=== PATIENT | male | born 1960 | race Two or more races ===

== ENCOUNTER 2017-07-30 21:19 | Inpatient (IN) | payer MEDICAID ==
[~2017-07-30] VITALS: Ht 177.8 cm; Wt 91.8 kg
[2017-07-30 22:34] LABS: Basophils # (auto) 0 uL; Eosinophils # (auto) 0 uL; Mean Corpuscular Hemoglobin 30.8 pg (28.0-32.0); Mean Corpuscular Volume 99.4 fL (80.0-100.0); Monocytes # (auto) 0.7 uL; Neutrophils # (auto) 7.5 uL; Red Cell Distribution Width 15.7 % (11.8-14.3)
[2017-07-30 22:36] LABS: Basophils % (auto) 0.4 % (0.0-2.0); Eosinophils % (auto) 0.3 % (0.0-7.0); Hemoglobin 18.4 g/dL (13.5-17.5); Lymphocytes # (auto) 1.3 uL; Lymphocytes % (auto) 14.1 % (10.0-50.0); Monocytes % (auto) 6.9 % (0.0-12.0); Neutrophils % (auto) 78.3 % (37.0-80.0); Nucleated Red Blood Cells % 0.2 %; Platelet Count (auto) 152 10^3/uL (140-450); Red Blood Cells 5.97 10^6/uL (4.5-5.90); White Blood Cell 9.6 10^3/uL (4.4-10.8)
[2017-07-30 22:37] LABS: Hematocrit 59.3 % (41.0-53.0)
[2017-07-30 22:53] LABS: Albumin 3.1 g/dL (3.4-5.0); Calcium 9.1 mg/dL (8.5-10.1); Magnesium 3.4 mg/dL (1.6-2.6); Potassium 3.8 mmol/L (3.5-5.1)
[2017-07-30 22:55] LABS: Bilirubin, Total 0.3 mg/dL (0.2-1.0); Total Protein 7.5 g/dL (6.4-8.2)
[2017-07-30] MEDS ORDERED: InsuLIN R (HUMAN) 100 UNITS in SODIUM CHL 0.9% 99 ML IV SCH (23:25)
[2017-07-30] MEDS: SODIUM CHLORIDE 0.9% 1,000 ML IV SCH (23:25)
[2017-07-30] MEDS ORDERED: D5W/SOD CHL 0.45%/KCL 20MEQ 1,000 ML IV SCH (23:25)
[2017-07-30] MEDS ORDERED: DEXTROSE (50%) 50ML SYRG IV PRN (23:30)
[2017-07-30] MEDS ORDERED: SODIUM CHLORIDE 0.9% 2,000 ML IV ONE (23:30)
[2017-07-30 23:53] LABS: BUN/Creatinine Ratio 25.4; INR 0.99 (0.9-1.15); Partial Thromboplastin Time 22.8 sec (22.64-33.71); Prothrombin Time 10.8 sec (9.37-12.3)
[2017-07-31] MEDS ORDERED: InsuLIN REG 1unit/0.01ml Soln (100units/ml) ONE (00:20)
[2017-07-31] MEDS ORDERED: LABETALOL HCL 5 MG/ML ML 20ML VIAL IV ONE (01:30)
[2017-07-31] MEDS: ACCU-CHEK COMFORT CURVE STRIP VI SCH ×10 (01:54→22:10)
[2017-07-31] MEDS ORDERED: SODIUM CHLORIDE 0.9% 1,000 ML IV SCH ×3 (03:25→13:06)
[2017-07-31] MEDS ORDERED: InsuLIN R (HUMAN) 100 UNITS in SODIUM CHL 0.9% 99 ML IV SCH (07:06)
[2017-07-31] MEDS ORDERED: NITROGLYCERIN 0.4 MG SL TAB SL PRN (07:15)
[2017-07-31] MEDS ORDERED: MORPHINE SULFATE 4 MG/ML SYR/VIAL IV PRN (07:15)
[2017-07-31] MEDS ORDERED: ACETAMINOPHEN 325 MG TAB PO PRN (07:15)
[2017-07-31] MEDS ORDERED: ONDANSETRON HCL 4 MG/2 ML VIAL IV PRN (07:15)
[2017-07-31] MEDS ORDERED: DEXTROSE (50%) 50ML SYRG IV PRN ×2 (07:15→11:45)
[2017-07-31] MEDS ORDERED: MORPHINE SULF INJ 2 MG/ML SYRINGE 1ML IV PRN (07:30)
[2017-07-31 07:50] LABS: BUN/Creatinine Ratio 32.8; Calcium 8.1 mg/dL (8.5-10.1); Potassium 3.1 mmol/L (3.5-5.1)
[2017-07-31] MEDS: SODIUM CHLORIDE 0.9% 1,000 ML IV SCH (08:06)
[2017-07-31] MEDS: ENOXAPARIN SOD 40 MG/0.4 ML SYRINGE SC SCH (10:13)
[2017-07-31] MEDS: FAMOTIDINE 20 MG TAB PO SCH ×2 (10:13→22:09)
[2017-07-31] MEDS: ASPirin 81 mg TAB PO SCH (10:13)
[2017-07-31] MEDS: METOPROLOL TARTRATE 25 MG TAB PO SCH ×2 (10:13→22:10)
[2017-07-31] MEDS ORDERED: SOD CHL 0.45% 1,000 ML IV SCH (10:15)
[2017-07-31] MEDS: POTASSIUM CHL 20MEQ/50ML 50 ML IV SCH ×2 (11:10→11:47)
[2017-07-31] MEDS ORDERED: INSULIN DETEMIR(LEVEMIR) 1unit/0.01ml Soln (100units/ml) SC ONE (11:45)
[2017-07-31] MEDS: SOD CHL 0.45% WITH 20MEQ KCL 1,000 ML IV SCH ×2 (12:45→19:18)
[2017-07-31 12:50] LABS: Alcohol, Urine < 3.0 mg/dL (0-5); Amphetamine Screen, Urine NEGATIVE (NEGATIVE); Barbiturate Scree,Urine NEGATIVE (NEGATIVE); Benzodiazephine Screen, Urine NEGATIVE (NEGATIVE); Cannabinoid Screen, Urine NEGATIVE (NEGATIVE); Cocaine Screen, Urine NEGATIVE (NEGATIVE); Opiate Scree,Urine NEGATIVE (NEGATIVE); Phencyclidine Screen, Urine NEGATIVE (NEGATIVE)
[2017-07-31 13:07] LABS: Urine Bacteria FEW /hpf (None Seen); Urine Blood 3+ /uL (Negative); Urine Mucus FEW (None Seen); Urine Specific Gravity 1.038 (1.001-1.035); Urine WBC 4 /hpf (0 - 3)
[2017-07-31 13:35] LABS: Calcium 7.6 mg/dL (8.5-10.1); Potassium 4.3 mmol/L (3.5-5.1)
[2017-07-31] MEDS: LISINOPRIL 10 MG TAB PO SCH (16:01)
[2017-07-31] MEDS: InsuLIN REG 1unit/0.01ml Soln (100units/ml) SC SCH ×2 (17:19→22:10)
[2017-07-31 17:35] LABS: Albumin 2.5 g/dL (3.4-5.0); Calcium 7.2 mg/dL (8.5-10.1); Magnesium 2.3 mg/dL (1.6-2.6); Potassium 3.5 mmol/L (3.5-5.1)
[2017-07-31 17:38] LABS: BUN/Creatinine Ratio 34.8
[2017-07-31 17:40] LABS: Bilirubin, Total 0.5 mg/dL (0.2-1.0); Total Protein 5.6 g/dL (6.4-8.2)
[2017-07-31 21:00] VITALS: BP 150/89
[2017-07-31] MEDS: TEMAZEPAM 15 MG CAP PO PRN (22:10)
[2017-07-31 22:59] VITALS: BP 159/101
[2017-07-31 23:03] VITALS: BP 150/89
[2017-08-01 01:49] LABS: BUN/Creatinine Ratio 41.2; Calcium 7.2 mg/dL (8.5-10.1); Potassium 3.3 mmol/L (3.5-5.1)
[2017-08-01 04:57] VITALS: BP 129/86
[2017-08-01] MEDS: InsuLIN REG 1unit/0.01ml Soln (100units/ml) SC SCH ×4 (05:36→21:24)
[2017-08-01] MEDS: SOD CHL 0.45% WITH 20MEQ KCL 1,000 ML IV SCH ×3 (05:36→21:22)
[2017-08-01] MEDS: ACCU-CHEK COMFORT CURVE STRIP VI SCH ×4 (05:36→21:24)
[2017-08-01 05:53] LABS: Albumin 2.5 g/dL (3.4-5.0); Basophils # (auto) 0.1 uL; Basophils % (auto) 0.7 % (0.0-2.0); Calcium 7.4 mg/dL (8.5-10.1); Eosinophils # (auto) 0.2 uL; Eosinophils % (auto) 2.6 % (0.0-7.0); Hematocrit 44.5 % (41.0-53.0); Hemoglobin 14.8 g/dL (13.5-17.5); Lymphocytes # (auto) 3.3 uL; Lymphocytes % (auto) 38.5 % (10.0-50.0); Mean Corpuscular Hemoglobin 30.8 pg (28.0-32.0); Mean Corpuscular Hgb Conc. 33.3 g/dL (32.0-36.0); Mean Corpuscular Volume 92.4 fL (80.0-100.0); Monocytes # (auto) 0.5 uL; Monocytes % (auto) 5.7 % (0.0-12.0); Neutrophils # (auto) 4.5 uL; Neutrophils % (auto) 52.5 % (37.0-80.0); Nucleated Red Blood Cells % 0.3 %; Platelet Count (auto) 94 10^3/uL (140-450); Potassium 3.3 mmol/L (3.5-5.1); Red Blood Cells 4.81 10^6/uL (4.5-5.90); White Blood Cell 8.5 10^3/uL (4.4-10.8)
[2017-08-01 05:55] LABS: BUN/Creatinine Ratio 36.4
[2017-08-01 05:58] LABS: Bilirubin, Total 0.5 mg/dL (0.2-1.0); Total Protein 5.8 g/dL (6.4-8.2)
[2017-08-01 09:00] VITALS: BP 147/88
[2017-08-01] MEDS: ASPirin 81 mg TAB PO SCH (10:34)
[2017-08-01] MEDS: FAMOTIDINE 20 MG TAB PO SCH ×2 (10:35→21:23)
[2017-08-01] MEDS: LISINOPRIL 10 MG TAB PO SCH (10:35)
[2017-08-01] MEDS: METOPROLOL TARTRATE 25 MG TAB PO SCH ×2 (10:35→21:23)
[2017-08-01] MEDS: ENOXAPARIN SOD 40 MG/0.4 ML SYRINGE SC SCH (10:36)
[2017-08-01 12:18] VITALS: BP 148/108
[2017-08-01 17:59] VITALS: BP 141/94
[2017-08-01] MEDS: TEMAZEPAM 15 MG CAP PO PRN (21:24)
[2017-08-01 22:00] VITALS: BP 121/68
[2017-08-02] MEDS: SOD CHL 0.45% WITH 20MEQ KCL 1,000 ML IV SCH ×2 (02:30→09:48)
[2017-08-02 05:00] VITALS: BP 117/63
[2017-08-02] MEDS: ACCU-CHEK COMFORT CURVE STRIP VI SCH ×4 (05:44→21:32)
[2017-08-02] MEDS: InsuLIN REG 1unit/0.01ml Soln (100units/ml) SC SCH ×4 (05:44→21:20)
[2017-08-02 06:08] LABS: Calcium 7.5 mg/dL (8.5-10.1); Potassium 3.4 mmol/L (3.5-5.1)
[2017-08-02 06:12] LABS: BUN/Creatinine Ratio 27.3
[2017-08-02 09:00] VITALS: BP 143/84
[2017-08-02] MEDS: ASPirin 81 mg TAB PO SCH (09:46)
[2017-08-02] MEDS: METOPROLOL TARTRATE 25 MG TAB PO SCH ×2 (09:46→21:20)
[2017-08-02] MEDS: ENOXAPARIN SOD 40 MG/0.4 ML SYRINGE SC SCH (09:47)
[2017-08-02] MEDS: LISINOPRIL 10 MG TAB PO SCH (09:47)
[2017-08-02] MEDS: FAMOTIDINE 20 MG TAB PO SCH ×2 (09:47→21:20)
[2017-08-02] MEDS ORDERED: metFORMIN HYDROCHLORIDE 500 MG TAB PO SCH (10:00)
[2017-08-02 13:00] VITALS: BP 147/89
[2017-08-02 17:00] VITALS: BP 135/86
[2017-08-02 22:34] VITALS: BP 156/91
[2017-08-03] MEDS: SOD CHL 0.45% WITH 20MEQ KCL 1,000 ML IV SCH ×3 (03:25→18:30)
[2017-08-03 05:37] VITALS: BP 155/99
[2017-08-03] MEDS: LABETALOL HCL 5 MG/ML ML 20ML VIAL IV PRN (05:54)
[2017-08-03] MEDS: ACCU-CHEK COMFORT CURVE STRIP VI SCH ×4 (05:58→22:19)
[2017-08-03] MEDS: InsuLIN REG 1unit/0.01ml Soln (100units/ml) SC SCH ×4 (06:34→22:19)
[2017-08-03 07:43] LABS: Albumin 2.3 g/dL (3.4-5.0); BUN/Creatinine Ratio 18.5; Bilirubin, Total 0.8 mg/dL (0.2-1.0); Calcium 7.6 mg/dL (8.5-10.1); Potassium 3.1 mmol/L (3.5-5.1); Total Protein 5.5 g/dL (6.4-8.2)
[2017-08-03] MEDS ORDERED: ADENOSINE 79 MG in GIVE UN-DILUTED 0 ML IV ONE (08:30)
[2017-08-03] MEDS: HYDROcodone-ACET 5/325MG TAB PO PRN ×3 (08:40→16:11)
[2017-08-03 08:54] VITALS: BP 161/88
[2017-08-03] MEDS: METOPROLOL TARTRATE 25 MG TAB PO SCH ×2 (10:00→22:18)
[2017-08-03 10:20] VITALS: BP 179/101
[2017-08-03] MEDS ORDERED: POTASSIUM CHLORIDE 40 MEQ, LIDOCAINE 1% (LOCAL ANESTH.) 4 ML in SODIUM CHL 0.9% 100 ML IV ONE (10:45)
[2017-08-03] MEDS: ENOXAPARIN SOD 40 MG/0.4 ML SYRINGE SC SCH (12:16)
[2017-08-03] MEDS: FAMOTIDINE 20 MG TAB PO SCH ×2 (12:17→22:18)
[2017-08-03] MEDS: LISINOPRIL 10 MG TAB PO SCH (12:17)
[2017-08-03] MEDS: ASPirin 81 mg TAB PO SCH (12:18)
[2017-08-03 12:21] VITALS: BP 143/95
[2017-08-03 16:27] VITALS: BP 139/87
[2017-08-03 21:57] VITALS: BP 142/76
[2017-08-04] MEDS: SOD CHL 0.45% WITH 20MEQ KCL 1,000 ML IV SCH (02:30)
[2017-08-04 04:44] VITALS: BP 169/97
[2017-08-04] MEDS: LABETALOL HCL 5 MG/ML ML 20ML VIAL IV PRN (05:37)
[2017-08-04 06:19] LABS: BUN/Creatinine Ratio 17.9; Calcium 8.1 mg/dL (8.5-10.1)
[2017-08-04 06:27] LABS: Potassium 2.9 mmol/L (3.5-5.1)
[2017-08-04] MEDS: InsuLIN REG 1unit/0.01ml Soln (100units/ml) SC SCH ×4 (06:36→21:43)
[2017-08-04] MEDS: ACCU-CHEK COMFORT CURVE STRIP VI SCH ×4 (06:36→21:43)
[2017-08-04] MEDS ORDERED: POTASSIUM CHL 20 Meq TABLET PO ONE (07:00)
[2017-08-04] MEDS: HYDROcodone-ACET 5/325MG TAB PO PRN ×2 (08:21→16:38)
[2017-08-04] MEDS: LISINOPRIL 10 MG TAB PO SCH ×3 (08:26→21:42)
[2017-08-04] MEDS: METOPROLOL TARTRATE 25 MG TAB PO SCH ×2 (08:27→21:42)
[2017-08-04 09:00] VITALS: BP 151/100
[2017-08-04] MEDS: ENOXAPARIN SOD 40 MG/0.4 ML SYRINGE SC SCH (10:00)
[2017-08-04] MEDS: FAMOTIDINE 20 MG TAB PO SCH ×2 (10:00→21:42)
[2017-08-04] MEDS ORDERED: POTASSIUM CHLORIDE 80 MEQ, LIDOCAINE 1% (LOCAL ANESTH.) 6 ML in SODIUM CHL 0.9% 500 ML IV ONE (10:00)
[2017-08-04] MEDS: ASPirin 81 mg TAB PO SCH (10:00)
[2017-08-04] MEDS ORDERED: LIDOCAINE 2%HCL (LOCAL ANESTH.) INJ 20ML MDV ONE (12:45)
[2017-08-04] MEDS ORDERED: IOHEXOL 350 MG/ML 100ML IJ ONE (12:45)
[2017-08-04 13:00] VITALS: BP 150/92
[2017-08-04] MEDS ORDERED: MIDAZOLAM HCL 1MG/1ML-2 ML VIAL ONE (13:13)
[2017-08-04] MEDS ORDERED: SODIUM CHL 0.9% 0 ML ONE (13:13)
[2017-08-04] MEDS ORDERED: fentaNYL CITRATE 100 MCG/2 ML VL ONE (13:13)
[2017-08-04] MEDS ORDERED: ANGIOMAX 250 MG VIAL IV ONE (13:13)
[2017-08-04] MEDS ORDERED: SOD CHL 0.45% WITH 20MEQ KCL 1,000 ML IV SCH (16:30)
[2017-08-04 17:00] VITALS: BP 160/79
[2017-08-04 22:46] VITALS: BP 160/103
[2017-08-05 04:30] VITALS: BP 152/99
[2017-08-05] MEDS: InsuLIN REG 1unit/0.01ml Soln (100units/ml) SC SCH ×3 (06:25→17:19)
[2017-08-05] MEDS: ACCU-CHEK COMFORT CURVE STRIP VI SCH ×3 (06:26→17:18)
[2017-08-05 07:24] LABS: BUN/Creatinine Ratio 17.9; Calcium 7.9 mg/dL (8.5-10.1); Magnesium 2.3 mg/dL (1.6-2.6); Potassium 3.8 mmol/L (3.5-5.1)
[2017-08-05 09:08] VITALS: BP 146/104
[2017-08-05] MEDS: ENOXAPARIN SOD 40 MG/0.4 ML SYRINGE SC SCH (10:00)
[2017-08-05] MEDS: LISINOPRIL 10 MG TAB PO SCH (10:01)
[2017-08-05] MEDS: METOPROLOL TARTRATE 25 MG TAB PO SCH (10:01)
[2017-08-05] MEDS: FAMOTIDINE 20 MG TAB PO SCH (10:01)
[2017-08-05] MEDS: ASPirin 81 mg TAB PO SCH (10:02)
[2017-08-05] MEDS: HYDROcodone-ACET 5/325MG TAB PO PRN ×2 (10:22→14:45)
[2017-08-05 13:00] VITALS: BP 136/97
[2017-08-05 17:26] VITALS: BP 111/65
== END 2017-08-05 20:31 | DRG 420 ==
LOC: EDBD 21:19 → ER 21:29 → OVERFLOW 21:30 → TELE-CENTR 07-31 19:35
PROVIDERS: ADMIT Nurse Practitioner; ATTEND Internal Medicine
PROC: 4A023N7 Measurement of Cardiac Sampling and Pressure, Left Heart, Percutaneous Approach (ICD-10-PCS; principal; 2017-08-04)
PROC: B2111ZZ Fluoroscopy of Multiple Coronary Arteries using Low Osmolar Contrast (ICD-10-PCS; 2017-08-04)
PROC: B2151ZZ Fluoroscopy of Left Heart using Low Osmolar Contrast (ICD-10-PCS; 2017-08-04)
DX: E11.10 Type 2 diabetes mellitus with ketoacidosis without coma (principal); N17.0 Acute kidney failure with tubular necrosis; G93.41 Metabolic encephalopathy; I25.10 Atherosclerotic heart disease of native coronary artery without angina pectoris; E87.0 Hyperosmolality and hypernatremia; I50.40 Unspecified combined systolic (congestive) and diastolic (congestive) heart failure; I11.0 Hypertensive heart disease with heart failure; E87.6 Hypokalemia; E86.0 Dehydration; F17.200 Nicotine dependence, unspecified, uncomplicated; E87.1 Hypo-osmolality and hyponatremia; I69.354 Hemiplegia and hemiparesis following cerebral infarction affecting left non-dominant side; Z79.84 Long term (current) use of oral hypoglycemic drugs; I25.2 Old myocardial infarction; I24.0 Acute coronary thrombosis not resulting in myocardial infarction
CPT/HCPCS: 36415; 36600; 70450; 71045; 80048; 80053; 80307; 81001; 82010; 82805; 82962; 83036; 83735; 84484; 85025; 85610; 85730; 86850; 86900; 86901; 93005; 93017; 93306; 93458; 94761; 96361; 96372; 96374; 96375; 97163; 99152; G0378; J0153; J1815; J2001; J2250

== ENCOUNTER 2019-01-04 13:12 | Inpatient (IN) | payer MEDICAID ==
[~2019-01-04] VITALS: Ht 1 cm; Wt 88.4 kg
[2019-01-04] MEDS ORDERED: methylPREDNISolone SOD SUCC 125 MG/2 ML VL IV ONE (13:30)
[2019-01-04] MEDS ORDERED: ALBUTEROL SULF 2.5 MG/0.5ML(0.5%) NEB SOLN NEB ONE (13:30)
[2019-01-04] MEDS ORDERED: IPRATROPIUM BROM 0.5 MG/2.5ML INH SOL NEB ONE (13:30)
[2019-01-04 13:40] VITALS: BP 131/99
[2019-01-04 14:11] LABS: Basophils # (auto) 0 uL; Basophils % (auto) 0.3 % (0.0-2.0); Eosinophils # (auto) 0 uL; Eosinophils % (auto) 0.1 % (0.0-7.0); Hematocrit 47.7 % (41.0-53.0); Hemoglobin 15.1 g/dL (13.5-17.5); Lymphocytes # (auto) 1.8 uL; Lymphocytes % (auto) 16.3 % (10.0-50.0); Mean Corpuscular Hemoglobin 30.1 pg (28.0-32.0); Mean Corpuscular Hgb Conc. 31.7 g/dL (32.0-36.0); Monocytes # (auto) 0.6 uL; Monocytes % (auto) 5.8 % (0.0-12.0); Neutrophils # (auto) 8.4 uL; Neutrophils % (auto) 77.5 % (37.0-80.0); Nucleated Red Blood Cells % 0.2 %; Platelet Count (auto) 193 10^3/uL (140-450); Red Blood Cells 5.02 10^6/uL (4.5-5.90); Red Cell Distribution Width 15.2 % (11.8-14.3); White Blood Cell 10.8 10^3/uL (4.4-10.8)
[2019-01-04] MEDS ORDERED: FUROSEMIDE 40 MG/4 ML VIAL ONE (14:17)
[2019-01-04 14:21] LABS: Albumin 2.3 g/dL (3.4-5.0); INR 1.06 (0.9-1.15); Partial Thromboplastin Time 23.2 sec (23.64-32.05); Potassium 4.9 mmol/L (3.5-5.1)
[2019-01-04] MEDS ORDERED: cefTRIAXone 1GM/50ML D5W 50 ML IV ONE (14:30)
[2019-01-04] MEDS ORDERED: AZITHROMYCIN 500MG/ 250ML 250 ML IV ONE (14:30)
[2019-01-04 14:31] LABS: BUN/Creatinine Ratio 22.5; Bilirubin, Total 0.4 mg/dL (0.2-1.0); Total Protein 6.5 g/dL (6.4-8.2)
[2019-01-04 14:40] VITALS: BP 147/84
[2019-01-04] MEDS ORDERED: ENOXAPARIN SOD 100 MG/1 ML SYRINGE SC ONE (15:00)
[2019-01-04] MEDS ORDERED: InsuLIN R (HUMAN) 100 UNITS in SODIUM CHL 0.9% 99 ML IV SCH (15:00)
[2019-01-04] MEDS ORDERED: DEXTROSE (50%) 50ML SYRG IV PRN (15:00)
--- NOTE | 2019-01-04 15:10 | NUR ---
TRANSPORTED PT FROM ER BED 4 TO ER BED 5. PT ON A NRB. PLACED PT BACK ON BIPAP SETTINGS OF /, BUR 12, 50%FI02. PT IS SAYS HE DOES NOT WANT TO BE INTUBATED. INTUBATION TRAY AND AMBUBAG AT BEDSIDE AND READY TO USE. WAITING ON FAMILY MEMBERS. WILL CONTINUE TO MONITOR PT.
[2019-01-04 15:50] VITALS: BP 165/98
[2019-01-04 15:57] LABS: Magnesium 2.9 mg/dL (1.6-2.6); Phosphorus 3.8 mg/dL (2.5-4.90)
[2019-01-04] MEDS: SODIUM CHLORIDE 0.9% 1,000 ML IV SCH ×3 (16:04→20:34)
[2019-01-04] MEDS: ACCU-CHEK COMFORT CURVE STRIP VI SCH ×6 (16:05→22:45)
[2019-01-04 16:12] LABS: Lactic Acid w/Reflex 3.1 mmol/L (0.4-2.0)
--- NOTE | 2019-01-04 18:43 | NUR ---
Respiratory note: PT WAS REMOVED FROM BIPAP AT THIS TIME PER VETERANS' COUNSELOR Xiomara ROPER'S ORDERS DUE TO CHANGE OF CODE STATUS. PT PLACED ON A 12L OXYMIZER AT THIS TIME. HR 126 RR 30 POX 92%.
[2019-01-04] MEDS: LORazepam 2MG/ML-1ML VIAL IV PRN (18:47)
[2019-01-04] MEDS ORDERED: SODIUM CHLORIDE 0.9% 1,000 ML IV SCH (19:00)
[2019-01-04 19:45] VITALS: BP 123/84
--- NOTE | 2019-01-04 19:45 | NUR ---
MS admit from [facility] admitted to [facility] after SBAR received. Patient's family and bedside and oriented to JOSE LUIS CLARK, RN primary RN, unit, room, bed, and unit policies regarding patient care and visiting hours. Patient is currently A/O x 0 at this time and unresponsive to RN. Patient weighed by bedscale. All questions and concerns addressed, patient's family verbalized understanding.
[2019-01-04] MEDS: MORPHINE SULF INJ 2 MG/ML SYRINGE 1ML IV PRN (20:26)
--- NOTE | 2019-01-04 20:43 | NUR ---
Patient noted with a blood sugar reading "HI >600". No action needed, patient doesn't want any medication or aggressive treatment at this time, family is at bedside and expressed patient stopped taking his medications roughly two years ago.
[2019-01-04 21:42] LABS: BUN/Creatinine Ratio 21.7; Calcium 7.7 mg/dL (8.5-10.1)
[2019-01-04 22:00] VITALS: BP 123/89
--- NOTE | 2019-01-04 22:00 | NUR ---
STEFAN Avilez received call from lab regarding patient having a blood glucose of 820 and potassium of 5.6. Patient is currently a DNR and family was informed of the patients high lab values but family expressed and verbalized that patient stopped taking his routine medications roughly two years ago d/t not wanting to take any more medications for his state of health and has been refusing medications. Family verbalized that patient does not want any medication at this time and would like for health care team to continue to monitor at this time. Patient is currently unresponsive at this time. Hospitalist paged to be made aware of the patients condition and situation and the families expressed concerns and wishes.
[2019-01-04 22:04] LABS: Potassium 5.6 mmol/L (3.5-5.1)
--- NOTE | 2019-01-04 22:30 | NUR ---
Hospitalist returned page: Hospitalist informed of patients recent critical lab values and the patients and families wishes to be a DNR and not seeking any aggressive treatment and wishes for comfort measures only. Hospitalist aware.
--- NOTE | 2019-01-04 22:30 | NUR ---
Patient noted with a blood sugar reading "HI >600". No action needed, patient doesn't want any medication or aggressive treatment at this time, family and patient only wish for comfort measures only.
--- NOTE | 2019-01-05 00:22 | NUR ---
Patient less responsive: Patient was noted to be less responsive and difficult to arouse. RN provided oral suctioning for noted oral secretions. Patient comfortable at this time and comfort measures provided per patient and family wishes. Addendum: 01/05/19 at 0044 by JOSE LUIS CLARK RN RN Vitals: BP 104/79, HR 129, RR 29, T 98.9
--- NOTE | 2019-01-05 00:44 | NUR ---
Raghav AVILES called family to give an update on patient condition and worsening health status. Patient's son and verbalized understanding and that they still only want comfort measures and keep patient a DNR to honor the patient's wishes. Family informed RN that patient is an organ donor and they plan on cremation upon expiration of the patient. Family verbalized they are still looking for a mortuary to provide services. Family to continue to be updated on the patient's condition upon change in condition. Family thankful of RN update and interventions.
[2019-01-05] MEDS: SODIUM CHLORIDE 0.9% 1,000 ML IV SCH ×2 (03:40→10:08)
[2019-01-05] MEDS: ACCU-CHEK COMFORT CURVE STRIP VI SCH ×6 (06:21→12:00)
[2019-01-05] MEDS: MORPHINE SULF INJ 2 MG/ML SYRINGE 1ML IV PRN ×5 (06:32→21:31)
--- NOTE | 2019-01-05 07:22 | NUR ---
OPENING NOTE Assumed care of patient from [facility] RN, Raghav. Patient unresponsive to voice and touch. Even rise/fall of chest, tachypnea, and audible crackles noted. Attempted to suction secretions but patient bit down on [place]. Oxymizer in position, connected to 15L O2. Patient in high semi fowlers position and bed in lowest, locked position with side rails up x2. Fall precautions in place. Will continue to monitor for changes Q1hr and PRN.
[2019-01-05 07:36] LABS: Anion Gap 18 (5-15); Carbon Dioxide 14 mmol/L (21-32); Chloride 110 mmol/L (98-107); Potassium 5.3 mmol/L (3.5-5.1); Sodium 142 mmol/L (136-145)
--- NOTE | 2019-01-05 07:36 | NUR ---
CRITICAL LAB Received call from Lakisha parr, regarding critical glucose level, 827.
[2019-01-05 07:37] LABS: BUN/Creatinine Ratio 22.5; Blood Urea Nitrogen 48 mg/dL (7-18); Calcium 7.8 mg/dL (8.5-10.1); GFR African American 41 mL/min; GFR Non-African American 34 mL/min; Glucose 827 mg/dL (74-106)
[2019-01-05 09:00] VITALS: BP 125/53
--- NOTE | 2019-01-05 09:34 | NUR ---
ACCUCHECK Patient noted with a blood sugar reading "HI >600". No action needed, per family patient doesn't want any medication or aggressive treatment at this time, family and patient only wish for comfort measures only.
--- NOTE | 2019-01-05 10:13 | NUR ---
FAMILY AT BEDSIDE Patient's son and spouse are at bedside.
--- NOTE | 2019-01-05 12:52 | NUR ---
FAMILY CONTACTED Spoke with patient's son, Quintin, per Dr. Lema's request to speak with family in person. States that he and his mother would be in here in approximately 15 mins.
[2019-01-05 13:00] VITALS: BP_SYST 134; BP_SYST 138; BP_DIAS 62; BP_DIAS 85
--- NOTE | 2019-01-05 13:10 | NUR ---
PYREXIA Patient's axillary temperature, 102.2. Cooling measures taken. Will contact MD to notify and obtain order for Tylenol.
--- NOTE | 2019-01-05 13:15 | NUR ---
AT BEDSIDE Dr. Lema at bedside speaking with family regarding DNR/Hospice.
--- NOTE | 2019-01-05 14:50 | NUR ---
HOSPICE Patient's family refusing hospice at this time. business services intern to contact family. Quintin (son) [phone]
[2019-01-05] MEDS: LORazepam 2MG/ML-1ML VIAL IV PRN (14:52)
[2019-01-05] MEDS: ACETAMINOPHEN 650 MG RECT SUPP PR PRN ×2 (14:53→21:30)
--- NOTE | 2019-01-05 14:58 | NUR ---
SS SS, Hortensia, aware of family's refusal to transfer to hospice, states will contact family.
--- NOTE | 2019-01-05 16:50 | NUR ---
TRANSFER OF CARE Transferred care of patient to Mundo AVILES.
[2019-01-05 17:12] VITALS: BP 143/93
--- NOTE | 2019-01-05 17:44 | NUR ---
cooling measures initiated
--- NOTE | 2019-01-05 19:45 | NUR ---
RECEIVED PATIENT FROM DAY SHIFT RN. PATIENT RESTING IN BED. NO S/S OF DISTRESS NOTED. BREATHING FASTER. RR 24. HAMEED CATH IN PLACE DRAINING GRAVITY. PATIENT STILL HOT TO TOUCH. TEMP 101.4. ICE PACKS AND COOLING MEASURES CONTINUED. PATIENT NOT ABLE TO RESPONSE TO VOICE. SUCTION SECRETION FROM MOUTH.. PATIENT TOLERATED WELL. BED IN LOWEST POSITION WITH SIDE RAILS UP X 2. CALL [facility] WITHIN REACH. ALARM ON. CONTINUE TO MONITOR FOR CHANGES Q1H AND PRN.
--- NOTE | 2019-01-05 21:31 | NUR ---
MEDICATED PATIENT FOR TEMP 101.2. AND PAIN MEDICATION FOR COMFORT MEASURE ONLY. ICE PACK AND COOLING MEASURE CONTINUED. CONTINUE TO MONITOR.
[2019-01-05 21:52] VITALS: BP 140/75
--- NOTE | 2019-01-05 23:41 | NUR ---
REPOSITIONED PATIENT. PATIENT TOLERATED WELL. TEMP 97.8. REMOVED ICE PACKS. COVERED PATIENT WITH ONE SHEET. CONTINUE TO MONITOR.
--- NOTE | 2019-01-06 01:42 | NUR ---
REPOSITIONED PATIENT. PATIENT TOLERATED WELL. SUCTIONED SECRETION FROM MOUTH. CONTINUE TO MONITOR.
--- NOTE | 2019-01-06 04:04 | NUR ---
REPOSITIONED PATIENT. PATIENT TOLERATED WELL. CONTINUE CARE.
[2019-01-06 05:12] VITALS: BP 121/83
--- NOTE | 2019-01-06 06:32 | NUR ---
PATIENT RESTING IN BED. NO S/S OF DISTRESS NOTED. BREATHING LABORED. O2 SAT 93% ON 15L/OXYMIZER. CONTINUE CARE.
--- NOTE | 2019-01-06 07:40 | NUR ---
OPENING SHIFT NOTE PATIENT IS LAYING IN BED ON LEFT SIDE COMFORTABLY. LUNG SOUNDS CRACKLES. BED IS IN LOWEST LOCKED POSITION. WILL CONTINUE TO MONITOR AND TURN PATIENT Q2 HOURS.
[2019-01-06 09:00] VITALS: BP 119/52
--- NOTE | 2019-01-06 10:47 | NUR ---
REPOSITIONED PATIENT PATIENT IS ON LEFT SIDE. USING PILLOWS TO MAKE COMFORTABLE. WILL CONTINUE TO MONITOR.
--- NOTE | 2019-01-06 11:01 | NUR ---
assessment Patient is a 58 year old male. Per patients kamala Ribeiro prior to admission patient lived home with him and family and functioned with family assistance. Patients PCP is Dr Sheth. Patient has a wheelchair and hospital bed for home use. I informed Quintin patient has a ss consult to discharge to hospice facility. Per Quintin they cannot pay for board and care. Per Quintin patient will return home with family. Quintin has been given a list of medicare providers via telephone. Per Quintin he has no preference. MD order has been sent to [facility]. Traci from [facility] has met with family at bedside and family has signed consents. DME is being ordered. Waiting on discharge now. Once discharge is in [facility] will set up transport. [phone] fax [phone]. Addendum: 01/06/19 at 1613 by oHrtensia RAMEY Amended: Links added.
--- NOTE | 2019-01-06 12:00 | NUR ---
PHONE CALL FROM [facility] SPOKE TO JOSUE FROM [facility] REGARDING PATIENT BEING TRANSFER TO HOSPICE WILL NOTIFY ,
--- NOTE | 2019-01-06 12:22 | NUR ---
WOUND CARE NOTE: NOTED PATIENT TO HAVE [facility] SCORE OF 10. ADDED PATIENT TO [facility] MONITORING. PATIENT ADMITTED TO COUNTS INCLUDE 234 BEDS AT THE [facility] WITH DIAGNOSIS OF CARDIAC ARRYTHMIA. HE IS WOUND FREE AT THIS TIME, AND WILL BE DISCHARGING HOME ON HOSPICE TODAY.
[2019-01-06 13:00] VITALS: BP 140/89
--- NOTE | 2019-01-06 13:50 | NUR ---
TRAVON IGNACIO. AWAITING PHONE CALL BACK
[2019-01-06] MEDS: LORazepam 2MG/ML-1ML VIAL IV PRN (14:35)
[2019-01-06 16:47] VITALS: BP 140/89
--- NOTE | 2019-01-06 16:59 | NUR ---
re-assessment Patient is now discharged. Transportation has been set up between 7pm and 730pm by [facility]. patients kamala Ribeiro verbalized understanding and agreed to discharge plan home on hospice [phone]. Addendum: 01/06/19 at 1701 by Hortensia RAMEY Amended: Links added.
[2019-01-06 17:00] VITALS: BP 135/106
[2019-01-06] MEDS ORDERED: SODIUM CHLORIDE 0.9% 1,000 ML IV SCH (17:00)
[2019-01-06] MEDS ORDERED: D5W/SOD CHL 0.45% 1,000 ML IV SCH (17:00)
[2019-01-06] MEDS ORDERED: DEXTROSE (50%) 50ML SYRG IV PRN (17:00)
--- NOTE | 2019-01-06 18:55 | NUR ---
END OF SHIFT NOTE PATIENT IN BED EYES CLOSED COMFORTABLY. AWAITING TRANSPORT FROM [facility]. BED IS IN LOWEST LOCKED POSITION. ENDORSING CARE TO NOC RN
[2019-01-06] MEDS ORDERED: InsuLIN REG 1unit/0.01ml Soln (100units/ml) SC SCH (20:00)
[2019-01-06] MEDS ORDERED: ACCU-CHEK COMFORT CURVE STRIP VI SCH (20:00)
--- NOTE | 2019-01-06 20:21 | NUR ---
[facility] transport team present and pt DC home for hospice care at this time. Pt is non verbal and alert and oriented x0. Pt is with Kussmaul breathing and with O2 at 8L by oximizer.
== END 2019-01-06 20:21 | disposition hospice, home (50) | DRG 720 ==
LOC: EDBD 13:12 → ER 13:18 → OVERFLOW 16:38 → MERGE 16:38 → WEST WING 19:46
PROVIDERS: ADMIT Nurse Practitioner Acute Care; ATTEND Internal Medicine
PROC: 5A09357 Assistance with Respiratory Ventilation, Less than 24 Consecutive Hours, Continuous Positive Airway Pressure (ICD-10-PCS; principal; 2019-01-04)
DX: A41.9 Sepsis, unspecified organism (principal); J96.01 Acute respiratory failure with hypoxia; E87.2 Acidosis; N18.3 Chronic kidney disease, stage 3 (moderate); J18.1 Lobar pneumonia, unspecified organism; E11.22 Type 2 diabetes mellitus with diabetic chronic kidney disease; E44.0 Moderate protein-calorie malnutrition; Z66 Do not resuscitate; J44.0 Chronic obstructive pulmonary disease with (acute) lower respiratory infection; E11.65 Type 2 diabetes mellitus with hyperglycemia; I12.9 Hypertensive chronic kidney disease with stage 1 through stage 4 chronic kidney disease, or unspecified chronic kidney disease; E66.9 Obesity, unspecified; E78.00 Pure hypercholesterolemia, unspecified; E78.5 Hyperlipidemia, unspecified; E87.5 Hyperkalemia; G62.9 Polyneuropathy, unspecified; I25.10 Atherosclerotic heart disease of native coronary artery without angina pectoris; Z51.5 Encounter for palliative care; F32.9 Major depressive disorder, single episode, unspecified; Z68.29 Body mass index [BMI] 29.0-29.9, adult; Z79.84 Long term (current) use of oral hypoglycemic drugs; Z86.73 Personal history of transient ischemic attack (TIA), and cerebral infarction without residual deficits; Z91.14 Patient's other noncompliance with medication regimen; Z91.19 Patient's noncompliance with other medical treatment and regimen; Z79.899 Other long term (current) drug therapy
CPT/HCPCS: 36415; 36600; 51702; 71045; 80048; 80053; 82010; 82805; 82962; 83605; 83735; 83880; 83930; 84100; 84484; 85025; 85610; 85730; 87040; 93005; 94640; 94660; 96374; 96375; G0378; J0696; J1815